=== PATIENT | female | born 1985 | race Hispanic/Latino ===

== ENCOUNTER 2022-01-24 16:11 | Emergency (ER) | payer OTHER ==
--- OUTSIDE RECORDS SUMMARY | 2022-01-24 16:14 | XMS REPORT | Continuity of Care Document ---
:1985 Author Organization [facility] t Address [address] [place] [address] Care Team Providers Name Role Phone SHILO CHANG Attending Clinician Unavailable SHILO CHANG Attending Clinician Unavailable Payers Payer Name Policy Type Policy Number Effective Date Expiration Date S ource GENERIC PPO - [id number] 2015 GENERIC PAYOR 00:00:00 [facility] [id number] [employer] [id number] 2020 00:00:00 Problems This patient has no known problems. Allergies, Adverse Reactions, Alerts Allergy Allergy Status Severity Reaction(s) Onset Inactive Treating Comm ents Source Name Type Date Date Clinician hayde SALDANA Active U [facility]ly [facility] 8 Supply 00:00: [facility] 00 are [facility] Medications This patient has no known medications. Procedures This patient has no known procedures. Encounters Start End Encounter Admission Attending Care Care Encounter Source Date/Time Date/Time Type Type Clinicians Facility Department ID 2021-07-19 2021-07-19 Outpatient SALBADOR CHANG [id number] [facility] 09:17:05 13:25:54 SHILO dolan of Medicin e 2021-06-21 2021-06-21 [facility] [id number] [facility] 16:10:20 23:59:00 SHILO 2021-06-14 2021-06-14 Outpatient SALBADOR CHANG [facility] [id number] [facility] 07:36:18 12:08:43 SHILO dolan of Medicin e Results Test Description Test Time Test Comments Results Result Sourc e Comments MR, PELVIS, 2021-06-24 PATIENT IS 6 WEEKS WITHOUT CONTRAST 16:50:00 BASED ON LMP. [facility] OF THE YOGI YING UTERUS WITH PLAN : 1985 TO HAVE Sex: HYSTERECTOMY, BUT F WAS SUBSEQUENTLY DIAGNOSED WITH . GIVEN *FINAL REPORT HIGH RISK OF PATIENT ID: UTERINE CANCER , [id number] TECHNIQUE: NEED ASSESSMENT OF MRI of the pelvis UTERINE CAVITY WITHOUT and WITH AND IF ANY intravenous INVASION OR PELVIC contrast. LYMPHADENOPATHY. INDICATION: Unlisted Reason 35-year-old female for Exam - Click seven weeks Yes and Enter with diagnosis of Reason Below->Yes complex atypical Unlisted Reason hyperplasia. for Exam->N85.02 COMPARISON: None. FINDINGS: UTERUS: The uterus measures 7 x 12 x 7.5 cm. There are two small T2 hypointense masses within the anterior uterine myometrium measuring up to 1.1 cm likely representing small fibroids.. Otherwise no suspicious uterine mass. There is a section scar.ENDOMETRIUM: There is a single intrauterine gestational sac with mean gestational sac diameter 5.5 cm. There is no visualized pole. No T2 hyperintense signal to suggest subchorionic hemorrhage.OVARIES/A DNEXA: 2 cm cystic focus in the left ovary likely representing corpus luteal cyst. The right ovary is unremarkable. PERITONEUM/RETROPERI TONEUM: No free fluid. BLADDER: Bladder is unremarkable.RECTUM: Rectum and mesorectum are unremarkable. There is colonic diverticulosis. LYMPH NODES: No lymphadenopathy. BONES AND SOFT TISSUES: Unremarkable. IMPRESSION:Single intrauterine gestational sac without definite visualized pole. Further evaluation with pelvic ultrasound if not previously performed is suggested to evaluate for viability. Two small anterior uterine fibroids. No suspicious uterine mass. No pelvic lymphadenopathy. Colonic diverticulosis. Signed: Vick Morales MDReport Verified Date/Time: 06/24/2021 16:50:21 Reading Location: [facility] [id number] CT Body Reading Room OSE 2019-05-01 14:29:00 Test Item Value Reference Range Interpretation Comme nts GLUCOSE (test code = GLU) 114 mg/dl 70-100 H HCG SERUM [id number] 14:24:00 Test Item Value Reference Range Interpretation Comments HCG SERUM QUAL NEGATIVE NEGATIVE This is a bigg litative (test code = HCGQL) screenin g test.The quantitative Bh cg may be helpful.Weakly positive results should be repeated in 48 hours. CBC W/AUTO [id number] 14:12:00 Test Item Value Reference Range Interpretation Comments WHITE BLOOD CELL (test code = 9.4 x10 3/uL 3.2-11.5 N WBC) RED BLOOD CELL (test code = 4.53 x10(6)/m 3.70-5.10 N RBC) HEMOGLOBIN (test code = HGB) 12.7 g/dL 12.0-15.0 N HEMATOCRIT (test code = HCT) 38.7 % 35.7-44.8 N MEAN CELL VOLUME (test code = 85 fL 80-100 N MCV) MEAN CELL HGB (test code = MCH) 27.9 pg 26.2-33.8 N MEAN CELL HGB CONCENTRATION 32.7 g/dL 30.0-34.0 N (test code = MCHC) RED CELL DISTRIBUTION WIDTH 14.2 % 11.3-14.5 N (test code = RDW) PLATELET COUNT (test code = 218 x10 3/uL 130-408 N PLT) MEAN PLATELET VOLUME (test code 9.4 fl 6.4-10.5 N = MPV) NEUTROPHIL % (test code = NT%) 79.2 % 40.0-70.0 H LYMPHOCYTE % (test code = LY%) 15.0 % 20-40 L MONOCYTE % (test code = MO%) 4.3 % 1-10 N EOSINOPHIL % (test code = EO%) 1.4 % 1.0-5.0 N BASOPHIL % (test code = BA%) 0.1 % 0.0-1.0 N NEUTROPHIL # (test code = NT#) 7.4 x10 3/uL 1.6-7.2 H LYMPHOCYTE # (test code = LY#) 1.40 x10 3/uL 1.1-2.7 N MONOCYTE # (test code = MO#) 0.4 x10 3/uL 0.3-0.8 N EOSINOPHIL # (test code = EO#) 0.1 x10 3/uL 0.0-0.5 N BASOPHIL # (test code = BA#) 0.0 x10 3/uL 0.0-0.1 N
[2022-01-24] MEDS ORDERED: KETOROLAC 30 MG/ML INJ ONE (17:09)
[2022-01-24] MEDS ORDERED: ONDANSETRON 4 MG/2 ML VIAL ONE ×2 (17:10→17:11)
[2022-01-24] MEDS ORDERED: NA CHLORIDE 0.9% 1,000 ML ONE ×2 (17:10→19:04)
[2022-01-24 17:11] LABS: Urine Blood 3+ (Negative); Urine Glucose Negative (Negative); Urine Protein 1+ (Negative); Urine Specific Gravity 1.015 (1.005-1.030)
[2022-01-24 17:19] LABS: Urine Specific Gravity/Preg 1.015 (1.005-1.030)
--- NOTE | 2022-01-24 17:24 | RAD REPORT ---
EXAM DESCRIPTION: CT - Stone Protocol - 01/24/2022 5:17 pm CLINICAL HISTORY: Flank pain. Flank pain, kidney stone suspected COMPARISON: No comparisons TECHNIQUE: Axial images were obtained without oral or IV contrast. Lack of contrast limits solid org an and vascular assessment. The [id number] spans the entirety of the system partially obscuring uppermost abdomen and lung bases. Coronal reformatted images were obtained and reviewed. All CT scans are performed using dose optimization technique as appropriate and may include automated exposure control or mA/KV adjustment according to patient size. FINDINGS: The lower lung robledo are clear. Cholecystectomy. Imaged portions of the liver and spleen show no suspicious findings on non-contrast imaging. The panc reas and adrenal glands are normal. No pathologic lymphadenopathy in the abdomen or pelvis. 6 mm oblong stone is seen in the right ureter at the level of the pelvic inlet resulting in mild to m oderate right-sided hydronephrosis. Punctate calculus is present inferior calyx right kidney. No left -sided stone or hydronephrosis. No bowel obstruction, free air, free fluid or abscess. Normal appendix noted.Enlarged uterus with shelby nges of recent section. No significant bony abnormality. IMPRESSION: 6 mm stone in the right ureter at the level of the pelvic inlet with moderate right hydr onephrosis.
[2022-01-24 17:25] LABS: Absolute Lymphocytes (CBC) 1.1 K/uL (0.7-4.9); Hematocrit 37.2 % (36.0-45.0); MPV 8.3 fL (7.6-11.3); RBC Red Blood Cell Count 4.73 M/uL (3.86-4.86)
[2022-01-24 17:40] LABS: Urine Amorphous Sediment 1+ /HPF (NONE SEEN); Urine Bacteria 20-50 /HPF (<20); Urine Mucus 2+ /HPF (NONE SEEN)
--- NOTE | 2022-01-24 17:45 | ER ---
Nurse's Notes [facility] Name: Tonja Coker Age: 36 yrs Sex: Female : 1985 Arrival Date: 01/24/2022 Time: 16:13 Bed 7 Private MD: Diagnosis: Hydronephrosis with renal and ureteral calculous obstruction-6 mm right proximal ureter Presentation: 01/24 16:27 Chief complaint: Patient states: Epigastric and right upper abdominal pain with nausea ww that started earlier today. Recently had a c section on 01/12/2022. Currently breast feeding. Coronavirus screen: Vaccine status: Patient reports receiving the 2nd dose of the covid vaccine. Client denies travel out of the [place] in the last 14 days. Ebola Screen: Patient denies travel to an Ebola-affected area in the 21 days before illness onset. Initial Sepsis Screen: Does the patient meet any 2 criteria? No. Patient's initial sepsis screen is negative. Does the patient have a suspected source of infection? No. Patient's initial sepsis screen is negative. Risk Assessment: Do you want to hurt yourself or someone else? Patient reports no desire to harm self or others. Onset of symptoms was January 24, 2022. 16:27 Method Of Arrival: Ambulatory ww 16:27 Acuity: ANGELA 3 ww Triage Assessment: 16:29 General: Appears uncomfortable, Behavior is cooperative. Pain: Complains of pain in ww right upper quadrant. Historical: - Allergies: 16:29 No Known Allergies; ww - Home Meds: 16:29 None [Active]; ww - PMHx: 16:29 gestional diabetes; ww - PSHx: 16:29 section; ww - Immunization history:: Adult Immunizations up to date. - Social history:: Smoking status: Patient denies any tobacco usage or history of. Screenin:11 Abuse screen: Denies threats or abuse. Denies injuries from another. Nutritional ph screening: No deficits noted. Tuberculosis screening: No symptoms or risk factors identified. Fall Risk None identified. Assessment: 17:14 General: Appears in no apparent distress. comfortable, well groomed, Behavior is calm, ph cooperative, appropriate for age, Denies fever. Pain: Complains of pain in epigastric area Pain radiates to right upper quadrant. Neuro: Level of Consciousness is awake, alert, obeys commands, Oriented to person, place, time, situation. Cardiovascular: Capillary refill < 3 seconds in bilateral fingers Patient's skin is warm and dry. Respiratory: Airway is patent Respiratory effort is even, unlabored. GI: Reports upper abdominal pain, epigastric pain, nausea. Derm: Skin is intact, is healthy with good turgor, Skin is pink, warm \T\ dry. 18:30 Reassessment: Patient appears in no apparent distress at this time. Patient and/or ph family updated on plan of care and expected duration. Pain level reassessed. Patient is alert, oriented x 3, equal unlabored respirations, skin warm/dry/pink. Patient states feeling better. 19:16 Reassessment: D/C pending completion of IV medications. ph 20:15 Reassessment: Patient appears in no apparent distress at this time. Patient is alert, lp1 oriented x 3, equal unlabored respirations, skin warm/dry/pink. Patient states feeling better. Vital Signs: 16:27 BP 131 / 99; Pulse 74; Resp 18; Temp 98.3; Pulse Ox 98% ; Weight 81.65 kg; Height 4 ft. ww 11 in. (149.86 cm); Pain 5/10; 17:32 BP 131 / 87; Pulse 71; Resp 18; Pulse Ox 100% on R/A; ph 19:39 BP 112 / 63; Pulse 77; Resp 18; Pulse Ox 100% on R/A; lp1 16:27 Body Mass Index 36.36 (81.65 kg, 149.86 cm) ED Course: 16:13 Patient arrived in ED. as 16:29 Triage completed. 16:29 Arm band placed on. 16:30 Aamir Leonard MD is Attending Physician. [facility] 16:33 Grace Rebolledo, KIRBY is Primary Nurse. ph 17:10 Patient has correct armband on for positive identification. Bed in low position. Call [facility] light in reach. Side rails up X 1. Warm blanket given. Pulse ox on. NIBP on. 17:10 Urine Microscopic Only Sent. [facility] 17:10 Urine collected: clean catch specimen, jeremías colored. [facility] 17:14 Initial lab(s) drawn, by ia, sent to lab. Inserted saline lock: 20 gauge in right ph antecubital area, using aseptic technique. Blood collected. 17:18 CT Stone Protocol In Process Unspecified. EDMS 17:44 Daniel Perez MD is Referral Physician. shelby 19:11 Primary Nurse role handed off by Grace Rebolledo, KIRBY mw2 19:19 Jace Castro, KIRBY is Primary Nurse. as6 19:40 No provider procedures requiring assistance completed. lp1 20:15 IV discontinued, No redness/swelling at site. Pressure dressing applied. lp1 Administered Medications: 17:32 Drug: NS 0.9% 1000 ml Route: IV; Rate: 1 bolus; Site: right antecubital; ph 18:45 Follow up: Response: No adverse reaction; IV Status: Completed infusion ph 17:32 Drug: Zofran (Ondansetron) 4 mg Route: IVP; Site: right antecubital; ph 19:57 Follow up: Response: No adverse reaction; Nausea is decreased ph 17:32 Drug: Ketorolac 30 mg Route: IVP; Site: right antecubital; ph 19:57 Follow up: Response: No adverse reaction; Pain is decreased ph 19:15 Drug: Rocephin (cefTRIAXone) 1 grams Route: IV; Rate: per protocol; Site: right ph antecubital; 19:57 Follow up: Response: No adverse reaction; IV Status: Completed infusion ph 19:15 Drug: Flomax (tamsulosin) 0.4 mg Route: PO; ph 19:57 Follow up: Response: No adverse reaction ph 19:15 Drug: NS 0.9% 1000 ml Route: IV; Rate: 1 bolus; Site: right antecubital; ph 20:16 Follow up: IV Status: Completed infusion; IV Intake: 1000ml lp1 19:56 Not Given (Patient Refused): morphine 2 mg IVP once; (PAIN>8) RASS on ADMN: Combtv4, ph Very Agttd3, Agttd2, Rstlss1, AlertClm0, Drwsy-1, LtSdtn-2, ModSdtn-3, DpSdtn-4, UnArsble-5 x2 Medication: 19:11 VIS not applicable for this client. ph Intake: 20:16 IV: 1000ml; Total: 1000ml. lp1 Outcome: 17:45 Discharge ordered by . shelby 20:16 Discharged to home ambulatory, with significant other. lp1 20:16 Condition: good 20:16 Discharge instructions given to patient, Instructed on discharge instructions, follow up and referral plans. medication usage, Demonstrated understanding of instructions, follow-up care, medications, Prescriptions given X 4. 20:17 Patient left the ED. lp1 Signatures: Dispatcher [employer] EDTX Aamir Leonard MD MD cha Martinez, Amelia as Pena, Laura, KIRBY RN lp1 Grace Rebolledo RN RN Los, Kathrine [facility] Mariah Perez 2 Jace Castro RN RN as6 Ronit Garces RN RN ww
--- NOTE | 2022-01-24 17:45 | EDPHYS ---
Physician Documentation [facility] Name: Tonja Coker Age: 36 yrs Sex: Female : 1985 Arrival Date: 01/24/2022 Time: 16:13 Bed 7 Private MD: ED Physician Aamir Leonard HPI: 01/24 17:35 This 36 yrs old Female presents to ER via Ambulatory with complaints of shelby Epigastric Pain, Back Pain, CSec 5/5. 17:35 The patient presents with pain that is acute, with no known mechanism of injury. The shelby symptoms are located in the right mid back and right low back. Onset: The symptoms/episode began/occurred just prior to arrival. The pain radiates to the right lower quadrant. Associated signs and symptoms: Pertinent positives: abdominal pain. The problem was sustained from unknown cause. Modifying factors: The patient symptoms are alleviated by nothing, the patient symptoms are aggravated by nothing. Severity of symptoms: At their worst the symptoms were moderate, in the emergency department the symptoms have improved, moderately. The patient has not experienced similar symptoms in the past. Historical: - Allergies: 16:29 No Known Allergies; ww - Home Meds: 16:29 None [Active]; ww - PMHx: 16:29 gestional diabetes; ww - PSHx: 16:29 section; ww - Immunization history:: Adult Immunizations up to date. - Social history:: Smoking status: Patient denies any tobacco usage or history of. ROS: 17:37 Constitutional: Negative for fever, chills, and weight loss, Eyes: Negative for injury, shelby pain, redness, and discharge, ENT: Negative for injury, pain, and discharge, Neck: Negative for injury, pain, and swelling, Cardiovascular: Negative for chest pain, palpitations, and edema, Respiratory: Negative for shortness of breath, cough, wheezing, and pleuritic chest pain, : Negative for injury, bleeding, discharge, and swelling, MS/Extremity: Negative for injury and deformity, Skin: Negative for injury, rash, and discoloration, Neuro: Negative for headache, weakness, numbness, tingling, and seizure, Psych: Negative for depression, anxiety, suicide ideation, homicidal ideation, and hallucinations, Allergy/Immunology: Negative for hives, rash, and allergies, Endocrine: Negative for neck swelling, polydipsia, polyuria, polyphagia, and marked weight changes. 17:37 Abdomen/GI: Positive for abdominal pain, nausea, of the posterior aspect of right lateral abdomen, anterior aspect of right lateral abdomen and right lower quadrant. Exam: 17:37 Constitutional: This is a well developed, well nourished patient who is awake, alert, shelby and in no acute distress. Head/Face: Normocephalic, atraumatic. Eyes: Pupils equal round and reactive to light, extra-ocular motions intact. Lids and lashes normal. Conjunctiva and sclera are non-icteric and not injected. Cornea within normal limits. Periorbital areas with no swelling, redness, or edema. ENT: Nares patent. No nasal discharge, no septal abnormalities noted. Tympanic membranes are normal and external auditory canals are clear. Oropharynx with no redness, swelling, or masses, exudates, or evidence of obstruction, uvula midline. Mucous membranes moist. Neck: Trachea midline, no thyromegaly or masses palpated, and no cervical lymphadenopathy. Supple, full range of motion without nuchal rigidity, or vertebral point tenderness. No Meningismus. Chest/axilla: Normal chest wall appearance and motion. Nontender with no deformity. No lesions are appreciated. Cardiovascular: Regular rate and rhythm with a normal S1 and S2. No gallops, murmurs, or rubs. Normal PMI, no JVD. No pulse deficits. Respiratory: Lungs have equal breath sounds bilaterally, clear to auscultation and percussion. No rales, rhonchi or wheezes noted. No increased work of breathing, no retractions or nasal flaring. Abdomen/GI: Soft, non-tender, with normal bowel sounds. No distension or tympany. No guarding or rebound. No evidence of tenderness throughout. Back: No spinal tenderness. No costovertebral tenderness. Full range of motion. Skin: Warm, dry with normal turgor. Normal color with no rashes, no lesions, and no evidence of cellulitis. MS/ Extremity: Pulses equal, no cyanosis. Neurovascular intact. Full, normal range of motion. Neuro: Awake and alert, GCS 15, oriented to person, place, time, and situation. Cranial nerves II-XII grossly intact. Motor strength 5/5 in all extremities. Sensory grossly intact. Cerebellar exam normal. Normal gait. 17:37 Abdomen/GI: healing well , no s, s of infection. Vital Signs: 16:27 BP 131 / 99; Pulse 74; Resp 18; Temp 98.3; Pulse Ox 98% ; Weight 81.65 kg; Height 4 ft. ww 11 in. (149.86 cm); Pain 5/10; 17:32 BP 131 / 87; Pulse 71; Resp 18; Pulse Ox 100% on R/A; ph 19:39 BP 112 / 63; Pulse 77; Resp 18; Pulse Ox 100% on R/A; lp1 16:27 Body Mass Index 36.36 (81.65 kg, 149.86 cm) ww MDM: 16:30 Patient medically screened. [facility] 17:40 Differential diagnosis: Pyelonephritis Renal Infarction Ureterolithiasis. Data shelby reviewed: vital signs, nurses notes, lab test result(s), radiologic studies, CT scan. Data interpreted: surveillance monitor: not applicable for this patient encounter. rate is 71 beats/min, rhythm is regular, Pulse oximetry: on room air is 100 %. Counseling: I had a detailed discussion with the patient and/or guardian regarding: the historical points, exam findings, and any diagnostic results supporting the discharge/admit diagnosis, lab results, radiology results. 01/24 16:59 Order name: CBC with Diff; Complete Time: 17:41 [facility] 01/24 16:59 Order name: CMP [facility] 01/24 16:59 Order name: Lipase [facility] 01/24 16:59 Order name: Urine Microscopic Only; Complete Time: 17:41 [facility] 01/24 17:11 Order name: Urine Dipstick-Ancillary; Complete Time: 17:41 [facility] 01/24 17:14 Order name: Urine --Ancillary (enter results); Complete Time: 17:41 01/24 16:59 Order name: CT Stone Protocol; Complete Time: 17:41 [facility] 01/24 17:43 Order name: Urine Culture [facility] 01/24 16:59 Order name: IV Saline Lock; Complete Time: 17:07 [facility] 01/24 16:59 Order name: Labs collected and sent; Complete Time: 17:07 [facility] 01/24 16:59 Order name: Urine Dipstick-Ancillary (obtain specimen); Complete Time: 17:10 [facility] Administered Medications: 17:32 Drug: NS 0.9% 1000 ml Route: IV; Rate: 1 bolus; Site: right antecubital; ph 18:45 Follow up: Response: No adverse reaction; IV Status: Completed infusion ph 17:32 Drug: Zofran (Ondansetron) 4 mg Route: IVP; Site: right antecubital; ph 19:57 Follow up: Response: No adverse reaction; Nausea is decreased ph 17:32 Drug: Ketorolac 30 mg Route: IVP; Site: right antecubital; ph 19:57 Follow up: Response: No adverse reaction; Pain is decreased ph 19:15 Drug: Rocephin (cefTRIAXone) 1 grams Route: IV; Rate: per protocol; Site: right ph antecubital; 19:57 Follow up: Response: No adverse reaction; IV Status: Completed infusion ph 19:15 Drug: Flomax (tamsulosin) 0.4 mg Route: PO; ph 19:57 Follow up: Response: No adverse reaction ph 19:15 Drug: NS 0.9% 1000 ml Route: IV; Rate: 1 bolus; Site: right antecubital; ph 20:16 Follow up: IV Status: Completed infusion; IV Intake: 1000ml lp1 19:56 Not Given (Patient Refused): morphine 2 mg IVP once; (PAIN>8) RASS on ADMN: Combtv4, ph Very Agttd3, Agttd2, Rstlss1, AlertClm0, Drwsy-1, LtSdtn-2, ModSdtn-3, DpSdtn-4, UnArsble-5 x2 Disposition Summary: 01/24/22 17:45 Discharge Ordered Location: Home shelby Problem: new shelby Symptoms: have improved shelby Condition: Stable shelby Diagnosis - Hydronephrosis with renal and ureteral calculous obstruction - 6 mm right proximal shelby ureter Followup: shelby - With: Private Physician - When: 2 - 3 days - Reason: Recheck today's complaints, Continuance of care, Re-evaluation by your physician Followup: shelby - With: Daniel Perez MD - When: 2 - 3 days - Reason: Recheck today's complaints, Re-evaluation by your physician Discharge Instructions: - Discharge Summary Sheet shelby - Kidney Stones shelby - Kidney Stones, [id number] shelby - Hydronephrosis shelby - Dietary Guidelines to Help Prevent Kidney Stones shelby Forms: - Medication Reconciliation Form shelby - Thank You Letter [facility] - Antibiotic Education [facility] - Prescription Opioid Use [facility] - Family Work Release Prescriptions: - Flomax 0.4 mg Oral capsule - take 1 capsule by ORAL route once daily 1/2 hour following the same meal each [facility] day; 30 capsule; Refills: 0, Product Selection Permitted - Augmentin 875-125 mg Oral Tablet - take 1 tablet by ORAL route every 12 hours for 7 days; 14 tablet; Refills: 0, [facility] Product Selection Permitted - Zofran 4 mg Oral Tablet - take 1 tablet by ORAL route every 12 hours As needed; 20 tablet; Refills: 0, [facility] Product Selection Permitted - Tylenol-Codeine #3 300 mg-30 mg Oral - take 2 tablet by ORAL route every 6 hours; 26 tablet; Refills: 0, Product [facility] Selection Permitted Signatures: Dispatcher [employer] Aamir Garcia MD MD [facility] Grace Rebolledo, RN Ronit Schmitz ph RN Tonja Joseph RN lp1
[2022-01-24 17:49] LABS: Bilirubin Total 0.3 mg/dL (0.2-1.0); Potassium 3.9 mmol/L (3.5-5.1); Protein, Total 7.6 g/dL (6.4-8.2)
[2022-01-24] MEDS ORDERED: CEFTRIAXONE 1000 MG/VIAL ONE (19:04)
[2022-01-24] MEDS ORDERED: NA CHLORIDE 0.9% 50 ML ONE (19:04)
[2022-01-24] MEDS ORDERED: MORPHINE 2 MG/ML SYR ONE (19:04)
[2022-01-24] MEDS ORDERED: TAMSULOSIN 0.4 MG SR CAP ONE (19:04)
[2022-01-24 20:21] VITALS: TEMP 98.3
[2022-01-24 20:22] VITALS: O2SAT 100
[2022-01-24 20:24] VITALS: BP 112/63
== END 2022-01-24 20:17 | disposition home or self-care (01) ==
LOC: ER 16:11
DX: N13.2 Hydronephrosis with renal and ureteral calculous obstruction (principal)
CPT/HCPCS: 87088; 85025; 87086; 36415; 81025; 83690; 80053; 76377; 74176; J7030 ×2; J2405 ×2; 81003; 81015; 96361; 96365; 96375; 99284; J2270